=== PATIENT | female | born 1955 | race Caucasian/White ===

== ENCOUNTER 2017-07-02 10:48 | Emergency (ER) | payer MEDICARE, MEDICAID ==
[~2017-07-02] VITALS: Ht 154.9 cm; Wt 59.0 kg
[~2017-07-02 10:48] MED LIST: ACETTAB85 PO; BACL20TA PO; BUSP10TA90 PO; DIPH50CA31 PO; DOCU1CAP31 PO; ERGO2000 PO; GABA-498 PO; HYDR-2651 PO; ISO60SRT PO; LINA145C PO; METO5TAB2 PO; NITR400A5 TL; PRAV20TA3 PO; SPIR25TA89 PO; TRAM50TA2 PO; WARF1TAB PO; ZOLP10TA6 PO
[2017-07-02 13:36] LABS: INR 1.1 (0.9-1.15); Partial Thromboplastin Time 24.4 sec (22.64-33.71)
[2017-07-02 13:51] LABS: Eosinophils # (auto) 0 uL; Hematocrit 34.5 % (36.0-46.0); Lymphocytes # (auto) 1.8 uL; Lymphocytes % (auto) 12.8 % (10.0-50.0); Neutrophils # (auto) 11.2 uL
[2017-07-02 13:53] LABS: Basophils # (auto) 0 uL; Basophils % (auto) 0.3 % (0.0-2.0); Hemoglobin 10.3 g/dL (12.2-16.2); Mean Corpuscular Hemoglobin 24.3 pg (28.0-32.0); Mean Corpuscular Volume 81.1 fL (80.0-100.0); Mean Platelet Volume 8.3 fL (6.9-10.8); Monocytes % (auto) 7.4 % (0.0-12.0); Neutrophils % (auto) 79.5 % (37.0-80.0); Nucleated Red Blood Cells % 0.2 %; Platelet Count (auto) 371 10^3/uL (140-450); White Blood Cell 14.1 10^3/uL (4.4-10.8)
[2017-07-02 14:35] LABS: Anisocytosis Slight; Platelet Estimate Adequate
[2017-07-02 14:36] LABS: Microcytosis Slight
[2017-07-02 14:48] LABS: Albumin 3.7 g/dL (3.4-5.0); BUN/Creatinine Ratio 12.5; Bilirubin, Total 0.6 mg/dL (0.2-1.0); Calcium 9.2 mg/dL (8.5-10.1); Magnesium 2.8 mg/dL (1.6-2.6); Total Protein 8.3 g/dL (6.4-8.2)
[2017-07-02 15:04] LABS: Temperature: 23.5 C (20.0-25.0)
[2017-07-02 15:53] VITALS: BP 95/66
== END 2017-07-02 16:09 | disposition swing bed (61) ==
LOC: EDBD 10:48 → ER 10:48
DX: R41.82 Altered mental status, unspecified (principal); D72.829 Elevated white blood cell count, unspecified; I13.0 Hypertensive heart and chronic kidney disease with heart failure and stage 1 through stage 4 chronic kidney disease, or unspecified chronic kidney disease; I50.9 Heart failure, unspecified; N18.9 Chronic kidney disease, unspecified; E11.22 Type 2 diabetes mellitus with diabetic chronic kidney disease; R22.0 Localized swelling, mass and lump, head; I25.2 Old myocardial infarction; Z95.1 Presence of aortocoronary bypass graft; Z79.01 Long term (current) use of anticoagulants; Z79.899 Other long term (current) drug therapy; Z95.0 Presence of cardiac pacemaker
CPT/HCPCS: 36415; 70450; 71010; 80053; 82962; 83735; 83880; 84484; 85025; 85610; 85730; 93005; 94761

== ENCOUNTER 2021-01-27 02:15 | Inpatient (IN) | payer MEDICARE, MEDICAID ==
[~2021-01-27] VITALS: Ht 154.9 cm; Wt 68.4 kg
[~2021-01-27 02:15] MED LIST changes: +ACET-1603 PO; -ACETTAB85 PO; -GABA-498 PO; +GABA400C11 PO; -HYDR-2651 PO; +HYDR-4296 PO; +SPIR25TA8 PO; -SPIR25TA89 PO
[2021-01-27] MEDS ORDERED: ONDANSETRON HCL 4 MG/2 ML VIAL IV ONE (04:15)
[2021-01-27] MEDS ORDERED: HYDROmorphone HCL 2 MG/ML VL IV ONE (04:15)
[2021-01-27 04:21] LABS: Basophils # (auto) 0.1 10 ^3/uL (0-0.2); Basophils % (auto) 0.7 % (0.0-2.0); Eosinophils # (auto) 0 10 ^3/uL (0-0.8); Eosinophils % (auto) 0.3 % (0.0-7.0); Hematocrit 40.5 % (36.0-46.0); Hemoglobin 13.7 g/dL (12.2-16.2); Lymphocytes # (auto) 1.2 10 ^3/uL (0.4-5.4); Lymphocytes % (auto) 14.3 % (10.0-50.0); Mean Corpuscular Hemoglobin 31.7 pg (28.0-32.0); Mean Corpuscular Hgb Conc. 33.7 g/dL (32.0-36.0); Mean Corpuscular Volume 94.1 fL (80.0-100.0); Monocytes # (auto) 0.6 10 ^3/uL (0-1.3); Monocytes % (auto) 7.1 % (0.0-12.0); Neutrophils # (auto) 6.7 10 ^3/uL (1.6-8.6); Neutrophils % (auto) 77.6 % (37.0-80.0); Nucleated Red Blood Cells % 0.1 %; Platelet Count (auto) 284 10^3/uL (140-450); Red Blood Cells 4.31 10^6/uL (4.0-5.20); Red Cell Distribution Width 14.7 % (11.8-14.3); White Blood Cell 8.6 10^3/uL (4.4-10.8)
[2021-01-27 04:34] LABS: INR 2.63 (0.9-1.15); Partial Thromboplastin Time 56.1 sec (23.0-31.2)
[2021-01-27 04:37] LABS: Alanine Aminotransferase 43 U/L (13-56); Albumin 3.7 g/dL (3.4-5.0); Amylase 91 U/L (25-115); Anion Gap 6 (5-15); Aspartate Aminotransferase 39 U/L (15-37); Blood Urea Nitrogen 25 mg/dL (7-18); Carbon Dioxide 24 mmol/L (21-32); Chloride 109 mmol/L (98-107); Glucose 98 mg/dL (74-106); Lipase 233 U/L (73-393); Magnesium 2.4 mg/dL (1.6-2.6); Potassium 4.3 mmol/L (3.5-5.1); Sodium 139 mmol/L (136-145)
[2021-01-27 04:42] LABS: Alkaline Phosphatase 83 U/L (45-117); BUN/Creatinine Ratio 15.9; Bilirubin, Total 0.8 mg/dL (0.2-1.0); GFR African American 42 mL/min; GFR Non-African American 35 mL/min; Total Protein 8.7 g/dL (6.4-8.2)
[2021-01-27] MEDS ORDERED: DexAMETHasone SOD PHOS 10MG/1ML VIAL INJ IV ONE (06:15)
[2021-01-27] MEDS ORDERED: AZITHROMYCIN 500MG/ 250ML 250 ML IV ONE (06:15)
[2021-01-27] MEDS ORDERED: DOXYCYCLINE 100MG/250ML 250 ML IV ONE (06:15)
[2021-01-27] MEDS ORDERED: ONDANSETRON HCL 4 MG/2 ML VIAL IV PRN (07:00)
[2021-01-27] MEDS: InsuLIN REG 1unit/0.01ml Soln (100units/ml) SC SCH ×2 (07:00→11:30)
[2021-01-27] MEDS ORDERED: HYDROcodone-ACET 5/325MG TAB PO PRN (07:00)
[2021-01-27] MEDS ORDERED: DEXTROSE (50%) 50ML SYRG IV PRN (07:00)
[2021-01-27] MEDS: ACCU-CHEK COMFORT CURVE STRIP VI SCH ×2 (07:00→12:15)
[2021-01-27] MEDS ORDERED: ACETAMINOPHEN 500 MG TAB PO PRN (07:00)
[2021-01-27] MEDS ORDERED: NITROGLYCERIN 0.4 MG SL TAB SL PRN (07:00)
[2021-01-27] MEDS ORDERED: MORPHINE SULF INJ 2 MG/ML SYRINGE 1ML IV PRN (07:00)
[2021-01-27] MEDS ORDERED: PANTOPRAZOLE 40 MG TAB PO SCH (10:00)
[2021-01-27 11:44] LABS: Urine Bacteria NONE SEEN /hpf (None Seen); Urine Blood Negative /uL (Negative); Urine Mucus FEW (None Seen); Urine WBC 4 /hpf (0 - 5)
[2021-01-27] MEDS: HYDROmorphone HCL 2 MG/ML VL IV PRN ×2 (12:24→18:45)
[2021-01-27 13:59] VITALS: BP 132/83
[2021-01-27] MEDS ORDERED: OPTISON 3ml Vial for INJ IV ONE (14:50)
[2021-01-27] MEDS: GABAPENTIN 400 MG CAP PO SCH ×2 (15:40→21:09)
[2021-01-27] MEDS ORDERED: POLY33504 GT (16:22)
[2021-01-27] MEDS ORDERED: LISI-275 PO (16:22)
[2021-01-27] MEDS ORDERED: GLYC1AER IN (16:22)
[2021-01-27] MEDS ORDERED: PRO125RS PO (16:22)
[2021-01-27] MEDS ORDERED: PANT40TA2 PO (16:22)
[2021-01-27] MEDS ORDERED: DIAZ5TAB3 PO (16:22)
[2021-01-27] MEDS ORDERED: FURO20TA3 PO (16:22)
[2021-01-27] MEDS ORDERED: ENOX100I5 SC (16:22)
[2021-01-27] MEDS ORDERED: ATOR40TA52 PO (16:23)
[2021-01-27 16:41] VITALS: BP 134/83
[2021-01-27 16:44] VITALS: BP 120/79
[2021-01-27] MEDS ORDERED: WARFARIN SODIUM 5 MG TAB PO ONE (17:00)
[2021-01-27] MEDS: SUCRALFATE 1 GM/10 ML ORAL SUSP PO SCH ×2 (17:32→21:09)
[2021-01-27] MEDS: PANTOPRAZOLE 40 MG TAB PO SCH (21:10)
[2021-01-27 22:00] VITALS: BP 109/69
[2021-01-28] MEDS ORDERED: TEMAZEPAM 15 MG CAP PO ONE (01:00)
[2021-01-28 05:09] VITALS: BP 115/72
[2021-01-28] MEDS: GABAPENTIN 400 MG CAP PO SCH ×2 (05:27→14:06)
[2021-01-28] MEDS: SUCRALFATE 1 GM/10 ML ORAL SUSP PO SCH ×2 (06:18→11:09)
[2021-01-28 08:09] LABS: INR 3.23 (0.9-1.15)
[2021-01-28 08:31] VITALS: BP 119/79
[2021-01-28] MEDS: PANTOPRAZOLE 40 MG TAB PO SCH (09:13)
[2021-01-28 09:41] LABS: BUN/Creatinine Ratio 17.9; Calcium 8.8 mg/dL (8.5-10.1); Potassium 4.3 mmol/L (3.5-5.1)
[2021-01-28] MEDS ORDERED: AZITHROMYCIN 250 MG TAB PO SCH (10:30)
[2021-01-28] MEDS ORDERED: AZIT250T PO (11:35)
[2021-01-28] MEDS ORDERED: SUCR1TAB22 OR (11:35)
[2021-01-28] MEDS ORDERED: PANT40TA2 PO (11:35)
[2021-01-28 12:31] VITALS: BP 114/75
== END 2021-01-28 15:20 | disposition home or self-care (01) | DRG 177 ==
LOC: EDBD 02:15 → ER 02:19 → TELE 06:58 → TELE-EAST 13:44
PROVIDERS: ADMIT Nurse Practitioner Acute Care; ATTEND Internal Medicine
DX: J15.6 Pneumonia due to other Gram-negative bacteria (principal); N17.0 Acute kidney failure with tubular necrosis; I50.42 Chronic combined systolic (congestive) and diastolic (congestive) heart failure; I13.0 Hypertensive heart and chronic kidney disease with heart failure and stage 1 through stage 4 chronic kidney disease, or unspecified chronic kidney disease; K57.92 Diverticulitis of intestine, part unspecified, without perforation or abscess without bleeding; R10.9 Unspecified abdominal pain; R07.9 Chest pain, unspecified; E04.1 Nontoxic single thyroid nodule; F03.90 Unspecified dementia, unspecified severity, without behavioral disturbance, psychotic disturbance, mood disturbance, and anxiety; I51.3 Intracardiac thrombosis, not elsewhere classified; I25.10 Atherosclerotic heart disease of native coronary artery without angina pectoris; J98.4 Other disorders of lung; R59.0 Localized enlarged lymph nodes; N18.31 Chronic kidney disease, stage 3a; E11.22 Type 2 diabetes mellitus with diabetic chronic kidney disease; E78.5 Hyperlipidemia, unspecified; F41.9 Anxiety disorder, unspecified; K57.30 Diverticulosis of large intestine without perforation or abscess without bleeding; Z20.822 Contact with and (suspected) exposure to COVID-19; Z95.810 Presence of automatic (implantable) cardiac defibrillator; Z79.01 Long term (current) use of anticoagulants; Z79.899 Other long term (current) drug therapy; Z82.49 Family history of ischemic heart disease and other diseases of the circulatory system; Z87.891 Personal history of nicotine dependence; Z95.1 Presence of aortocoronary bypass graft; Z95.5 Presence of coronary angioplasty implant and graft; Z88.5 Allergy status to narcotic agent
CPT/HCPCS: 36415; 71250; 74176; 76536; 80048; 80053; 81001; 82150; 82962; 83036; 83605; 83615; 83690; 83735; 84443; 84484; 85025; 85610; 85730; 87040; 87070; 87077; 87081; 87086; 87186; 87205; 87426; 93005; 93306; 96365; 96367; 96375; G0378; J1100; J2405; J3490; Q9956

== ENCOUNTER → 2021-03-18 | Outpatient (CLI) | payer MEDICARE, MEDICAID ==
[~2021-03-18] MED LIST changes: +ATOR40TA52 PO; +AZIT250T PO; -BACL20TA PO; +DIAZ5TAB3 PO; -DIPH50CA31 PO; +FURO20TA3 PO; +GLYC1AER IN; -HYDR-4296 PO; -ISO60SRT PO; -LINA145C PO; +LISI-275 PO; -METO5TAB2 PO; -NITR400A5 TL; +PANT40TA2 PO; +POLY33504 GT; -PRAV20TA3 PO; +PRO125RS PO; -SPIR25TA8 PO; +SUCR1TAB22 OR
== END | disposition home or self-care (01) ==
LOC: LAB 12:06
PROVIDERS: ATTEND Internal Medicine Pulmonary Disease
DX: Z01.812 Encounter for preprocedural laboratory examination (principal); Z20.822 Contact with and (suspected) exposure to COVID-19
CPT/HCPCS: 36415; 87426

== ENCOUNTER → 2021-03-19 | Outpatient (CLI) | payer MEDICARE, MEDICAID ==
[~2021-03-19] MED LIST changes: +ALBUTEROL SULF 2.5 MG/0.5ML(0.5%) NEB SOLN ONE
== END | disposition home or self-care (01) ==
LOC: RT 03-18 11:09
PROVIDERS: ATTEND Internal Medicine Pulmonary Disease
DX: J44.9 Chronic obstructive pulmonary disease, unspecified (principal)
CPT/HCPCS: 94060; 94727; 94729

== ENCOUNTER 2021-04-18 08:52 | Inpatient (IN) | payer MEDICARE, MEDICAID ==
[~2021-04-18] VITALS: Ht 154.9 cm; Wt 71.0 kg
[~2021-04-18 08:52] MED LIST changes: -ALBUTEROL SULF 2.5 MG/0.5ML(0.5%) NEB SOLN ONE
[2021-04-18] MEDS ORDERED: SODIUM CHLORIDE 0.9% 500 ML IV ONE (10:30)
[2021-04-18] MEDS ORDERED: SODIUM CHLORIDE 0.9% 1,000 ML IV ONE (11:30)
[2021-04-18 12:24] LABS: Basophils # (auto) 0 10 ^3/uL (0-0.2); Basophils % (auto) 0.3 % (0.0-2.0); Eosinophils # (auto) 0.1 10 ^3/uL (0-0.8); Eosinophils % (auto) 0.7 % (0.0-7.0); Lymphocytes % (auto) 7.5 % (10.0-50.0); Monocytes # (auto) 0.7 10 ^3/uL (0-1.3); Monocytes % (auto) 5.2 % (0.0-12.0); Neutrophils # (auto) 11.5 10 ^3/uL (1.6-8.6); Neutrophils % (auto) 86.3 % (37.0-80.0); Red Blood Cells 3.79 10^6/uL (4.0-5.20); White Blood Cell 13.3 10^3/uL (4.4-10.8)
[2021-04-18 12:25] LABS: Hematocrit 34.7 % (36.0-46.0); Hemoglobin 11.6 g/dL (12.2-16.2); Mean Corpuscular Hemoglobin 30.6 pg (28.0-32.0); Mean Corpuscular Hgb Conc. 33.4 g/dL (32.0-36.0); Mean Corpuscular Volume 91.6 fL (80.0-100.0); Red Cell Distribution Width 14.9 % (11.8-14.3)
[2021-04-18 12:43] LABS: Anion Gap 8 (5-15); BUN/Creatinine Ratio 15.9; Blood Urea Nitrogen 28 mg/dL (7-18); Calcium 8.4 mg/dL (8.5-10.1); Carbon Dioxide 20 mmol/L (21-32); Chloride 108 mmol/L (98-107); GFR African American 37 mL/min; GFR Non-African American 31 mL/min; Glucose 133 mg/dL (74-106); Magnesium 2.3 mg/dL (1.6-2.6); Potassium 3.9 mmol/L (3.5-5.1); Sodium 136 mmol/L (136-145)
[2021-04-18 12:58] LABS: Alanine Aminotransferase 37 U/L (13-56); Alkaline Phosphatase 84 U/L (45-117); Aspartate Aminotransferase 37 U/L (15-37); Bilirubin, Total 0.6 mg/dL (0.2-1.0); Total Protein 7.2 g/dL (6.4-8.2)
[2021-04-18] MEDS: PHENYLEPHRINE IV 250 ML IV SCH (16:06)
[2021-04-18] MEDS ORDERED: DOCUSATE CALCIUM 240 MG CAP PO PRN (17:30)
[2021-04-18] MEDS ORDERED: NITROGLYCERIN 0.4 MG SL TAB SL PRN (17:30)
[2021-04-18] MEDS ORDERED: ACETAMINOPHEN 500 MG TAB PO PRN (17:30)
[2021-04-18] MEDS ORDERED: DEXTROSE (50%) 50ML SYRG IV PRN (17:30)
[2021-04-18] MEDS ORDERED: LORazepam 0.5 MG TAB PO PRN (17:30)
[2021-04-18] MEDS ORDERED: ONDANSETRON HCL 4 MG/2 ML VIAL IV PRN (17:30)
[2021-04-18] MEDS: HYDROmorphone HCL 2 MG/ML VL IV PRN ×2 (18:37→22:36)
[2021-04-18 19:15] LABS: Basophils # (auto) 0.1 10 ^3/uL (0-0.2); Basophils % (auto) 0.7 % (0.0-2.0); Eosinophils # (auto) 0.1 10 ^3/uL (0-0.8); Eosinophils % (auto) 0.6 % (0.0-7.0); Hemoglobin 10.8 g/dL (12.2-16.2); Lymphocytes # (auto) 1.7 10 ^3/uL (0.4-5.4); Lymphocytes % (auto) 14.3 % (10.0-50.0); Mean Corpuscular Hemoglobin 30.9 pg (28.0-32.0); Mean Corpuscular Hgb Conc. 33.8 g/dL (32.0-36.0); Mean Corpuscular Volume 91.6 fL (80.0-100.0); Monocytes # (auto) 1.2 10 ^3/uL (0-1.3); Neutrophils # (auto) 8.6 10 ^3/uL (1.6-8.6); Neutrophils % (auto) 74.4 % (37.0-80.0); Red Cell Distribution Width 14.9 % (11.8-14.3); White Blood Cell 11.6 10^3/uL (4.4-10.8)
[2021-04-18 19:26] LABS: Calcium 7.8 mg/dL (8.5-10.1); Potassium 3.9 mmol/L (3.5-5.1)
[2021-04-18 19:29] LABS: Albumin 2.8 g/dL (3.4-5.0); BUN/Creatinine Ratio 18.4
[2021-04-18 19:32] LABS: Bilirubin, Total 0.4 mg/dL (0.2-1.0); Total Protein 6.7 g/dL (6.4-8.2)
[2021-04-18 19:40] LABS: INR 3.49 (0.9-1.15)
[2021-04-18] MEDS: InsuLIN REG 1unit/0.01ml Soln (100units/ml) SC SCH (20:00)
[2021-04-18] MEDS: ACCU-CHEK COMFORT CURVE STRIP VI SCH (20:00)
[2021-04-18 20:28] VITALS: BP 98/67
[2021-04-18] MEDS: ALBUTEROL SULF 2.5 MG/0.5ML(0.5%) NEB SOLN NEB PRN (21:24)
[2021-04-18] MEDS: BUDESONIDE (INHALATION) 0.5 MG/2 ML NEB NEB SCH (21:24)
[2021-04-19] VITALS (52 sets, daily range): BP systolic 90–129; BP diastolic 53–78
[2021-04-19] MEDS: PHENYLEPHRINE IV 250 ML IV SCH ×3 (00:04→10:51)
[2021-04-19] MEDS: InsuLIN REG 1unit/0.01ml Soln (100units/ml) SC SCH ×3 (04:00→08:00)
[2021-04-19] MEDS: ACCU-CHEK COMFORT CURVE STRIP VI SCH ×3 (04:00→08:11)
[2021-04-19 04:13] LABS: Basophils # (auto) 0.1 10 ^3/uL (0-0.2); Basophils % (auto) 0.9 % (0.0-2.0); Eosinophils # (auto) 0.1 10 ^3/uL (0-0.8); Eosinophils % (auto) 1.2 % (0.0-7.0); Hematocrit 30.2 % (36.0-46.0); Hemoglobin 10.1 g/dL (12.2-16.2); Lymphocytes # (auto) 1.5 10 ^3/uL (0.4-5.4); Lymphocytes % (auto) 18.8 % (10.0-50.0); Mean Corpuscular Hemoglobin 30.9 pg (28.0-32.0); Mean Corpuscular Hgb Conc. 33.4 g/dL (32.0-36.0); Mean Corpuscular Volume 92.4 fL (80.0-100.0); Monocytes # (auto) 0.8 10 ^3/uL (0-1.3); Neutrophils # (auto) 5.4 10 ^3/uL (1.6-8.6); Neutrophils % (auto) 69.1 % (37.0-80.0); Nucleated Red Blood Cells % 0.1 %; Red Blood Cells 3.27 10^6/uL (4.0-5.20); Red Cell Distribution Width 14.8 % (11.8-14.3); White Blood Cell 7.8 10^3/uL (4.4-10.8)
[2021-04-19 04:44] LABS: INR 4.09 (0.9-1.15)
[2021-04-19 04:52] LABS: Albumin 2.7 g/dL (3.4-5.0); BUN/Creatinine Ratio 19.5; Calcium 7.8 mg/dL (8.5-10.1); Potassium 4.2 mmol/L (3.5-5.1)
[2021-04-19 04:54] LABS: Bilirubin, Total 0.3 mg/dL (0.2-1.0); Total Protein 6.1 g/dL (6.4-8.2)
[2021-04-19] MEDS: cefTRIAXone 1GM/50ML D5W 50 ML IV SCH (08:59)
[2021-04-19] MEDS: HYDROmorphone HCL 2 MG/ML VL IV PRN (09:38)
[2021-04-19] MEDS ORDERED: PANTOPRAZOLE 40 MG TAB PO SCH (10:00)
[2021-04-19] MEDS ORDERED: traMADol HCL 50 MG TAB PO PRN (10:15)
[2021-04-19] MEDS ORDERED: PROMETHAZINE HCL 12.5 MG RECT SUPP PR PRN (10:15)
[2021-04-19] MEDS: SUCRALFATE 1 GM TAB PO SCH ×3 (11:30→21:58)
[2021-04-19] MEDS: Ensure HIGH Protein Chocolate 8oz Bottle PO SCH ×2 (11:49→17:57)
[2021-04-19] MEDS ORDERED: diazePAM 5 MG TAB PO PRN (12:00)
[2021-04-19 13:13] LABS: Urine WBC None Seen /hpf (0 - 5)
[2021-04-19 13:18] LABS: Urine Bacteria NONE SEEN /hpf (None Seen); Urine Blood Negative /uL (Negative); Urine Specific Gravity 1.012 (1.001-1.035)
[2021-04-19] MEDS: GABAPENTIN 400 MG CAP PO SCH ×2 (13:57→21:58)
[2021-04-19] MEDS ORDERED: busPIRone HCL 10 MG TAB PO SCH ×2 (14:00→16:00)
[2021-04-19] MEDS ORDERED: WARFARIN SODIUM 5 MG TAB PO SCH (17:00)
[2021-04-19] MEDS ORDERED: OPTISON 3ml Vial for INJ IV ONE ×2 (17:43→18:00)
[2021-04-19] MEDS: POLYETHYLENE GLYCOL 17 GM PWDR PO SCH (20:12)
[2021-04-19] MEDS: busPIRone HCL 10 MG TAB PO SCH (21:58)
[2021-04-19] MEDS: ZOLPIDEM TARTRATE 5 MG TAB PO SCH (21:58)
[2021-04-19] MEDS: ATORVASTATIN 20 MG TAB PO SCH (21:58)
[2021-04-19] MEDS: ACETAMINOPHEN/CODEINE#3 (300/30mg) TAB PO SCH (21:59)
[2021-04-19] MEDS: PANTOPRAZOLE 40 MG TAB PO SCH (21:59)
[2021-04-19] MEDS: BUDESONIDE (INHALATION) 0.5 MG/2 ML NEB NEB SCH ×2 (22:00→22:06)
[2021-04-19] MEDS ORDERED: DOCUSATE SOD 100 MG CAP PO SCH (22:00)
[2021-04-20 05:00] VITALS: BP 134/70
[2021-04-20] MEDS: busPIRone HCL 10 MG TAB PO SCH ×3 (06:22→20:30)
[2021-04-20] MEDS: GABAPENTIN 400 MG CAP PO SCH ×3 (06:22→20:30)
[2021-04-20] MEDS: SUCRALFATE 1 GM TAB PO SCH ×4 (06:23→20:30)
[2021-04-20] MEDS: BUDESONIDE (INHALATION) 0.5 MG/2 ML NEB NEB SCH ×2 (07:35→23:08)
[2021-04-20] MEDS: IPRATROPIUM BROM 0.5 MG/2.5ML INH SOL NEB PRN (07:35)
[2021-04-20] MEDS: ALBUTEROL SULF 2.5 MG/0.5ML(0.5%) NEB SOLN NEB PRN (07:35)
[2021-04-20] MEDS: Ensure HIGH Protein Chocolate 8oz Bottle PO SCH ×3 (08:00→17:56)
[2021-04-20 08:36] LABS: Basophils # (auto) 0.1 10 ^3/uL (0-0.2); Basophils % (auto) 0.6 % (0.0-2.0); Eosinophils # (auto) 0.1 10 ^3/uL (0-0.8); Eosinophils % (auto) 0.8 % (0.0-7.0); Hematocrit 33.2 % (36.0-46.0); Hemoglobin 11.2 g/dL (12.2-16.2); Lymphocytes % (auto) 10.3 % (10.0-50.0); Mean Corpuscular Hemoglobin 31.3 pg (28.0-32.0); Mean Corpuscular Hgb Conc. 33.7 g/dL (32.0-36.0); Mean Corpuscular Volume 92.8 fL (80.0-100.0); Monocytes # (auto) 0.6 10 ^3/uL (0-1.3); Monocytes % (auto) 5.9 % (0.0-12.0); Neutrophils # (auto) 7.9 10 ^3/uL (1.6-8.6); Neutrophils % (auto) 82.4 % (37.0-80.0); Red Blood Cells 3.58 10^6/uL (4.0-5.20); Red Cell Distribution Width 15.4 % (11.8-14.3); White Blood Cell 9.6 10^3/uL (4.4-10.8)
[2021-04-20 08:54] LABS: INR 2.82 (0.9-1.15); Partial Thromboplastin Time 37.6 sec (23.0-31.2)
[2021-04-20 09:00] VITALS: BP 115/68
[2021-04-20 09:04] LABS: Albumin 2.8 g/dL (3.4-5.0); Anion Gap 4 (5-15); Blood Urea Nitrogen 22 mg/dL (7-18); Calcium 8.7 mg/dL (8.5-10.1); Carbon Dioxide 26 mmol/L (21-32); Chloride 112 mmol/L (98-107); Glucose 142 mg/dL (74-106); Potassium 4.1 mmol/L (3.5-5.1); Sodium 142 mmol/L (136-145)
[2021-04-20 09:11] LABS: Alanine Aminotransferase 37 U/L (13-56); Alkaline Phosphatase 81 U/L (45-117); Aspartate Aminotransferase 28 U/L (15-37); BUN/Creatinine Ratio 15.4; Bilirubin, Total 0.8 mg/dL (0.2-1.0); GFR African American 47 mL/min; GFR Non-African American 39 mL/min; Total Protein 7.2 g/dL (6.4-8.2)
[2021-04-20] MEDS: cefTRIAXone 1GM/50ML D5W 50 ML IV SCH (09:42)
[2021-04-20] MEDS: PANTOPRAZOLE 40 MG TAB PO SCH ×2 (09:42→20:45)
[2021-04-20] MEDS: ACETAMINOPHEN/CODEINE#3 (300/30mg) TAB PO SCH ×3 (09:42→20:31)
[2021-04-20] MEDS: POLYETHYLENE GLYCOL 17 GM PWDR PO SCH ×2 (09:42→20:45)
[2021-04-20] MEDS: HYDROmorphone HCL 2 MG/ML VL IV PRN ×2 (09:55→17:57)
[2021-04-20] MEDS ORDERED: FUROSEMIDE 20 MG TAB PO SCH (10:00)
[2021-04-20 13:00] VITALS: BP 107/69
[2021-04-20 17:00] VITALS: BP 128/72
[2021-04-20] MEDS ORDERED: WARFARIN SODIUM 2 MG TAB PO ONE (17:00)
[2021-04-20] MEDS: ATORVASTATIN 20 MG TAB PO SCH (20:30)
[2021-04-20] MEDS: ZOLPIDEM TARTRATE 5 MG TAB PO SCH (20:30)
[2021-04-20 23:02] VITALS: BP 134/83
[2021-04-21] MEDS: busPIRone HCL 10 MG TAB PO SCH ×3 (05:26→21:21)
[2021-04-21] MEDS: GABAPENTIN 400 MG CAP PO SCH ×3 (05:26→21:22)
[2021-04-21] MEDS: SUCRALFATE 1 GM TAB PO SCH ×4 (05:27→21:22)
[2021-04-21 05:51] LABS: Basophils # (auto) 0.1 10 ^3/uL (0-0.2); Basophils % (auto) 0.9 % (0.0-2.0); Eosinophils # (auto) 0.1 10 ^3/uL (0-0.8); Hematocrit 30.6 % (36.0-46.0); Hemoglobin 10.6 g/dL (12.2-16.2); Lymphocytes # (auto) 1.3 10 ^3/uL (0.4-5.4); Lymphocytes % (auto) 18.1 % (10.0-50.0); Mean Corpuscular Hemoglobin 31.7 pg (28.0-32.0); Mean Corpuscular Hgb Conc. 34.6 g/dL (32.0-36.0); Mean Corpuscular Volume 91.5 fL (80.0-100.0); Monocytes # (auto) 0.8 10 ^3/uL (0-1.3); Monocytes % (auto) 11.1 % (0.0-12.0); Neutrophils # (auto) 4.9 10 ^3/uL (1.6-8.6); Neutrophils % (auto) 67.9 % (37.0-80.0); Red Blood Cells 3.34 10^6/uL (4.0-5.20); White Blood Cell 7.3 10^3/uL (4.4-10.8)
[2021-04-21 05:59] VITALS: BP 125/67
[2021-04-21] MEDS ORDERED: SODIUM CHL 3% 500 ML BAG IN ONE ×2 (06:00→07:00)
[2021-04-21 06:21] LABS: INR 2.19 (0.9-1.15); Partial Thromboplastin Time 37.3 sec (23.0-31.2)
[2021-04-21 06:35] LABS: Potassium 4.4 mmol/L (3.5-5.1)
[2021-04-21 07:04] LABS: Albumin 2.5 g/dL (3.4-5.0); BUN/Creatinine Ratio 15.3; Bilirubin, Total 0.6 mg/dL (0.2-1.0); Calcium 8.2 mg/dL (8.5-10.1); Total Protein 6.8 g/dL (6.4-8.2)
[2021-04-21] MEDS: Ensure HIGH Protein Chocolate 8oz Bottle PO SCH ×3 (07:27→16:41)
[2021-04-21] MEDS: BUDESONIDE (INHALATION) 0.5 MG/2 ML NEB NEB SCH ×2 (08:35→22:56)
[2021-04-21] MEDS: ALBUTEROL SULF 2.5 MG/0.5ML(0.5%) NEB SOLN NEB PRN ×2 (08:35→22:57)
[2021-04-21] MEDS: IPRATROPIUM BROM 0.5 MG/2.5ML INH SOL NEB PRN ×2 (08:36→22:56)
[2021-04-21 09:00] VITALS: BP 118/74
[2021-04-21] MEDS: PANTOPRAZOLE 40 MG TAB PO SCH ×2 (09:08→21:22)
[2021-04-21] MEDS: cefTRIAXone 1GM/50ML D5W 50 ML IV SCH (09:08)
[2021-04-21] MEDS: POLYETHYLENE GLYCOL 17 GM PWDR PO SCH ×2 (09:14→21:22)
[2021-04-21] MEDS: ACETAMINOPHEN/CODEINE#3 (300/30mg) TAB PO SCH ×2 (09:14→21:23)
[2021-04-21 13:00] VITALS: BP 123/74
[2021-04-21 17:00] VITALS: BP 110/67
[2021-04-21] MEDS ORDERED: WARFARIN SODIUM 1 MG TAB PO ONE (17:00)
[2021-04-21] MEDS: HYDROmorphone HCL 2 MG/ML VL IV PRN (17:18)
[2021-04-21] MEDS: ZOLPIDEM TARTRATE 5 MG TAB PO SCH (21:21)
[2021-04-21] MEDS: ATORVASTATIN 20 MG TAB PO SCH (21:22)
[2021-04-21 23:09] VITALS: BP 113/70
[2021-04-22 03:35] VITALS: BP 113/70
[2021-04-22 05:34] VITALS: BP 138/81
[2021-04-22] MEDS: SUCRALFATE 1 GM TAB PO SCH ×4 (05:48→20:49)
[2021-04-22] MEDS: busPIRone HCL 10 MG TAB PO SCH ×3 (05:48→20:49)
[2021-04-22] MEDS: GABAPENTIN 400 MG CAP PO SCH ×3 (05:48→20:49)
[2021-04-22] MEDS ORDERED: SODIUM CHL 3% 500 ML BAG IN ONE (06:00)
[2021-04-22 06:26] LABS: Basophils # (auto) 0.1 10 ^3/uL (0-0.2); Basophils % (auto) 0.7 % (0.0-2.0); Eosinophils # (auto) 0.2 10 ^3/uL (0-0.8); Eosinophils % (auto) 2.2 % (0.0-7.0); Hematocrit 30.5 % (36.0-46.0); Hemoglobin 10.4 g/dL (12.2-16.2); Lymphocytes # (auto) 1.1 10 ^3/uL (0.4-5.4); Lymphocytes % (auto) 13.5 % (10.0-50.0); Mean Corpuscular Hemoglobin 31.4 pg (28.0-32.0); Mean Corpuscular Hgb Conc. 34.3 g/dL (32.0-36.0); Mean Corpuscular Volume 91.6 fL (80.0-100.0); Monocytes # (auto) 0.6 10 ^3/uL (0-1.3); Monocytes % (auto) 7.9 % (0.0-12.0); Neutrophils % (auto) 75.7 % (37.0-80.0); Red Blood Cells 3.33 10^6/uL (4.0-5.20); Red Cell Distribution Width 15.2 % (11.8-14.3); White Blood Cell 7.9 10^3/uL (4.4-10.8)
[2021-04-22 06:36] LABS: INR 1.94 (0.9-1.15)
[2021-04-22 06:49] LABS: Albumin 2.4 g/dL (3.4-5.0)
[2021-04-22] MEDS: BUDESONIDE (INHALATION) 0.5 MG/2 ML NEB NEB SCH ×2 (07:15→22:22)
[2021-04-22 08:30] VITALS: BP 124/81
[2021-04-22] MEDS: cefTRIAXone 1GM/50ML D5W 50 ML IV SCH (09:44)
[2021-04-22] MEDS: POLYETHYLENE GLYCOL 17 GM PWDR PO SCH ×2 (09:44→20:50)
[2021-04-22] MEDS: Ensure HIGH Protein Chocolate 8oz Bottle PO SCH ×3 (09:44→16:57)
[2021-04-22] MEDS: ACETAMINOPHEN/CODEINE#3 (300/30mg) TAB PO SCH ×2 (09:45→20:50)
[2021-04-22] MEDS: PANTOPRAZOLE 40 MG TAB PO SCH ×2 (09:45→20:50)
[2021-04-22] MEDS: HYDROmorphone HCL 2 MG/ML VL IV PRN (11:43)
[2021-04-22 12:30] VITALS: BP 129/81
[2021-04-22 17:00] VITALS: BP 129/79
[2021-04-22] MEDS ORDERED: WARFARIN SODIUM 2 MG TAB PO SCH (17:00)
[2021-04-22] MEDS: ATORVASTATIN 20 MG TAB PO SCH (20:49)
[2021-04-22] MEDS: ZOLPIDEM TARTRATE 5 MG TAB PO SCH (20:51)
[2021-04-22 22:00] VITALS: BP 131/74
[2021-04-22] MEDS: ALBUTEROL SULF 2.5 MG/0.5ML(0.5%) NEB SOLN NEB PRN (22:22)
[2021-04-22] MEDS: IPRATROPIUM BROM 0.5 MG/2.5ML INH SOL NEB PRN (22:22)
[2021-04-23 05:00] VITALS: BP 125/77
[2021-04-23] MEDS: HYDROmorphone HCL 2 MG/ML VL IV PRN (05:52)
[2021-04-23] MEDS: GABAPENTIN 400 MG CAP PO SCH ×2 (05:52→14:00)
[2021-04-23] MEDS: busPIRone HCL 10 MG TAB PO SCH ×2 (05:53→14:00)
[2021-04-23] MEDS: SUCRALFATE 1 GM TAB PO SCH ×2 (05:53→11:12)
[2021-04-23] MEDS ORDERED: SODIUM CHL 3% 500 ML BAG IN ONE (06:00)
[2021-04-23 06:19] LABS: INR 1.99 (0.9-1.15)
[2021-04-23] MEDS: IPRATROPIUM BROM 0.5 MG/2.5ML INH SOL NEB PRN (06:40)
[2021-04-23] MEDS: ALBUTEROL SULF 2.5 MG/0.5ML(0.5%) NEB SOLN NEB PRN (06:40)
[2021-04-23] MEDS: BUDESONIDE (INHALATION) 0.5 MG/2 ML NEB NEB SCH (06:40)
[2021-04-23 09:00] VITALS: BP 111/63
[2021-04-23] MEDS: cefTRIAXone 1GM/50ML D5W 50 ML IV SCH (09:34)
[2021-04-23] MEDS: ACETAMINOPHEN/CODEINE#3 (300/30mg) TAB PO SCH (09:35)
[2021-04-23] MEDS: PANTOPRAZOLE 40 MG TAB PO SCH (09:35)
[2021-04-23] MEDS: POLYETHYLENE GLYCOL 17 GM PWDR PO SCH (09:35)
[2021-04-23] MEDS: Ensure HIGH Protein Chocolate 8oz Bottle PO SCH ×2 (09:35→12:00)
[2021-04-23 13:00] VITALS: BP 150/107
[2021-04-23 13:36] VITALS: BP 142/78
[2021-04-23] MEDS ORDERED: WARFARIN SODIUM 2.5 MG TAB PO ONE (17:00)
[2021-04-24] MEDS ORDERED: ERGOCALCIFEROL 50,000 UNIT(1.25MG) CAP PO SCH (10:00)
[2021-04-24] MEDS ORDERED: PANTOPRAZOLE 40 MG TAB PO SCH (10:00)
== END 2021-04-23 14:30 | disposition home or self-care (01) | DRG 682 ==
LOC: EDBD 08:52 → ER 08:52 → EDUNIT# 08:52 → OVERFLOW 17:39 → ICU WEST 23:48 → TELE-WESTW 04-19 23:00
PROVIDERS: ADMIT Family Medicine; ATTEND Internal Medicine Pulmonary Disease
PROC: B54MZZA Ultrasonography of Right Upper Extremity Veins, Guidance (ICD-10-PCS; principal; 2021-04-19)
PROC: 05HB33Z Insertion of Infusion Device into Right Basilic Vein, Percutaneous Approach (ICD-10-PCS; 2021-04-19)
DX: N17.0 Acute kidney failure with tubular necrosis (principal); I50.43 Acute on chronic combined systolic (congestive) and diastolic (congestive) heart failure; I13.0 Hypertensive heart and chronic kidney disease with heart failure and stage 1 through stage 4 chronic kidney disease, or unspecified chronic kidney disease; D68.8 Other specified coagulation defects; E44.0 Moderate protein-calorie malnutrition; E86.0 Dehydration; Z20.822 Contact with and (suspected) exposure to COVID-19; D63.8 Anemia in other chronic diseases classified elsewhere; I51.3 Intracardiac thrombosis, not elsewhere classified; D72.829 Elevated white blood cell count, unspecified; N18.30 Chronic kidney disease, stage 3 unspecified; G89.29 Other chronic pain; E78.5 Hyperlipidemia, unspecified; R73.9 Hyperglycemia, unspecified; I25.10 Atherosclerotic heart disease of native coronary artery without angina pectoris; T45.515A Adverse effect of anticoagulants, initial encounter; R07.89 Other chest pain; J44.9 Chronic obstructive pulmonary disease, unspecified; Z79.899 Other long term (current) drug therapy; Z88.5 Allergy status to narcotic agent; I25.2 Old myocardial infarction; Z95.0 Presence of cardiac pacemaker; Z79.01 Long term (current) use of anticoagulants; Z95.1 Presence of aortocoronary bypass graft; Z82.49 Family history of ischemic heart disease and other diseases of the circulatory system; Z87.891 Personal history of nicotine dependence; Z81.8 Family history of other mental and behavioral disorders; Y92.89 Other specified places as the place of occurrence of the external cause
CPT/HCPCS: 36415; 71250; 80053; 81001; 82040; 82565; 82962; 83036; 83605; 83735; 83880; 84443; 84484; 85025; 85379; 85610; 85730; 87040; 87081; 87086; 87426; 93005; 93306; 93925; 94640; 96374; 96375; G0378; J0696; Q9956

== ENCOUNTER 2021-04-18 08:52 | Emergency (ER) | payer MEDICARE, MEDICAID ==
[~2021-04-18] VITALS: Ht 154.9 cm; Wt 69.4 kg
[2021-04-18 09:08] VITALS: BP 76/51
== END 2021-04-18 09:13 | disposition left against medical advice (07) ==
LOC: ER 08:52
DX: R42 Dizziness and giddiness (principal); R55 Syncope and collapse; Z53.21 Procedure and treatment not carried out due to patient leaving prior to being seen by health care provider
CPT/HCPCS: 36415; 71045; 85025

== ENCOUNTER 2021-06-25 14:59 | Inpatient (IN) | payer MEDICARE, MEDICAID ==
[~2021-06-25] VITALS: Ht 167.6 cm; Wt 71.9 kg
[~2021-06-25 14:59] MED LIST changes: +DOCU1CAP22 PO; -DOCU1CAP31 PO; -LISI-275 PO
[2021-06-25 15:46] LABS: Basophils # (auto) 0.1 10 ^3/uL (0-0.2); Basophils % (auto) 0.7 % (0.0-2.0); Eosinophils # (auto) 0 10 ^3/uL (0-0.8); Eosinophils % (auto) 0.4 % (0.0-7.0); Hematocrit 33.9 % (36.0-46.0); Hemoglobin 11.2 g/dL (12.2-16.2); Lymphocytes # (auto) 0.6 10 ^3/uL (0.4-5.4); Lymphocytes % (auto) 5.9 % (10.0-50.0); Mean Corpuscular Hemoglobin 29.1 pg (28.0-32.0); Mean Corpuscular Volume 88.1 fL (80.0-100.0); Monocytes # (auto) 0.6 10 ^3/uL (0-1.3); Monocytes % (auto) 5.6 % (0.0-12.0); Neutrophils # (auto) 9.5 10 ^3/uL (1.6-8.6); Neutrophils % (auto) 87.4 % (37.0-80.0); Red Blood Cells 3.84 10^6/uL (4.0-5.20); Red Cell Distribution Width 15.9 % (11.8-14.3); White Blood Cell 10.9 10^3/uL (4.4-10.8)
[2021-06-25 16:07] LABS: Albumin 2.8 g/dL (3.4-5.0); Potassium 3.2 mmol/L (3.5-5.1)
[2021-06-25 16:10] LABS: BUN/Creatinine Ratio 12.5; Bilirubin, Total 1.5 mg/dL (0.2-1.0); Total Protein 7.5 g/dL (6.4-8.2)
[2021-06-25] MEDS ORDERED: ALUM & MAG HYDROX-SIMETH LIQ(MAALOX) 30 ML PO ONE (20:30)
[2021-06-25] MEDS ORDERED: POTASSIUM CHL 20 Meq TABLET PO ONE (20:30)
[2021-06-25] MEDS ORDERED: KETOROLAC TROMETH 60MG/2ML VIAL IM ONE (22:00)
[2021-06-25] MEDS ORDERED: FUROSEMIDE 40 MG/4 ML VIAL IV ONE (23:30)
[2021-06-25] MEDS ORDERED: ASPirin 325 MG TAB PO ONE (23:30)
[2021-06-26] MEDS ORDERED: NITROGLYCERIN 0.4 MG SL TAB SL PRN (00:45)
[2021-06-26] MEDS ORDERED: ONDANSETRON HCL 4 MG/2 ML VIAL IV PRN (00:45)
[2021-06-26] MEDS ORDERED: ACETAMINOPHEN 325 MG TAB PO PRN (00:45)
[2021-06-26] MEDS ORDERED: MORPHINE SULFATE INJECTION 2 MG/ML SYRG IV PRN ×2 (00:45→10:15)
[2021-06-26 01:45] LABS: INR 1.3 (0.9-1.15); Partial Thromboplastin Time 27.7 sec (23.6-33.0)
[2021-06-26] MEDS: HYDROcodone-ACET 5/325MG TAB PO PRN ×3 (04:45→18:04)
[2021-06-26] MEDS: FUROSEMIDE 20 MG/2 ML VIAL IV SCH ×2 (06:59→18:10)
[2021-06-26 08:32] LABS: Basophils # (auto) 0.1 10 ^3/uL (0-0.2); Basophils % (auto) 0.8 % (0.0-2.0); Eosinophils # (auto) 0.1 10 ^3/uL (0-0.8); Eosinophils % (auto) 0.5 % (0.0-7.0); Hematocrit 33.1 % (36.0-46.0); Lymphocytes % (auto) 9.1 % (10.0-50.0); Mean Corpuscular Hemoglobin 29.6 pg (28.0-32.0); Mean Corpuscular Hgb Conc. 33.1 g/dL (32.0-36.0); Mean Corpuscular Volume 89.4 fL (80.0-100.0); Monocytes # (auto) 0.6 10 ^3/uL (0-1.3); Monocytes % (auto) 5.4 % (0.0-12.0); Neutrophils # (auto) 9.2 10 ^3/uL (1.6-8.6); Neutrophils % (auto) 84.2 % (37.0-80.0); Nucleated Red Blood Cells % 0.1 %; Red Cell Distribution Width 15.5 % (11.8-14.3); White Blood Cell 10.9 10^3/uL (4.4-10.8)
[2021-06-26 08:37] LABS: Albumin 3.1 g/dL (3.4-5.0)
[2021-06-26 09:00] VITALS: BP 148/96
[2021-06-26] MEDS: CARVEDILOL 12.5 MG TAB PO SCH ×2 (10:13→22:00)
[2021-06-26] MEDS: PANTOPRAZOLE 40 MG TAB PO SCH (10:13)
[2021-06-26] MEDS: GABAPENTIN 400 MG CAP PO SCH ×2 (10:13→22:08)
[2021-06-26] MEDS: ISOSORBIDE MONONITRATE ER 60 MG TAB PO SCH (10:15)
[2021-06-26 13:00] VITALS: BP 107/70
[2021-06-26] MEDS ORDERED: ISO60SRT PO (16:53)
[2021-06-26] MEDS ORDERED: SPIR25TA8 PO (16:53)
[2021-06-26 16:58] VITALS: BP 90/61
[2021-06-26] MEDS ORDERED: WARFARIN SODIUM 5 MG TAB PO ONE (17:00)
[2021-06-26] MEDS ORDERED: ZOLPIDEM TARTRATE 5 MG TAB PO PRN (17:15)
[2021-06-26 22:00] VITALS: BP 96/49
[2021-06-26] MEDS: SACUBITRIL-VALSARTAN 24mg/26mg TAB PO SCH (22:09)
[2021-06-26] MEDS: ATORVASTATIN 20 MG TAB PO SCH (22:09)
[2021-06-27 05:00] VITALS: BP 99/49
[2021-06-27] MEDS: FUROSEMIDE 20 MG/2 ML VIAL IV SCH ×2 (06:00→17:30)
[2021-06-27] MEDS: HYDROcodone-ACET 5/325MG TAB PO PRN ×2 (06:19→16:11)
[2021-06-27 06:58] LABS: Basophils # (auto) 0 10 ^3/uL (0-0.2); Basophils % (auto) 0.6 % (0.0-2.0); Eosinophils # (auto) 0.2 10 ^3/uL (0-0.8); Eosinophils % (auto) 2.9 % (0.0-7.0); Hematocrit 29.4 % (36.0-46.0); Hemoglobin 9.9 g/dL (12.2-16.2); Lymphocytes # (auto) 0.9 10 ^3/uL (0.4-5.4); Lymphocytes % (auto) 13.4 % (10.0-50.0); Mean Corpuscular Hemoglobin 29.6 pg (28.0-32.0); Mean Corpuscular Hgb Conc. 33.8 g/dL (32.0-36.0); Mean Corpuscular Volume 87.4 fL (80.0-100.0); Monocytes # (auto) 0.5 10 ^3/uL (0-1.3); Monocytes % (auto) 7.3 % (0.0-12.0); Neutrophils # (auto) 5.2 10 ^3/uL (1.6-8.6); Neutrophils % (auto) 75.8 % (37.0-80.0); Red Blood Cells 3.36 10^6/uL (4.0-5.20); Red Cell Distribution Width 15.5 % (11.8-14.3); White Blood Cell 6.9 10^3/uL (4.4-10.8)
[2021-06-27 07:03] LABS: INR 1.26 (0.9-1.15)
[2021-06-27 07:26] LABS: Potassium 3.5 mmol/L (3.5-5.1)
[2021-06-27 07:29] LABS: Albumin 2.3 g/dL (3.4-5.0)
[2021-06-27 08:00] VITALS: BP 91/61
[2021-06-27 08:16] LABS: Total Protein 6.7 g/dL (6.4-8.2)
[2021-06-27 09:00] VITALS: BP 91/61
[2021-06-27] MEDS: SACUBITRIL-VALSARTAN 24mg/26mg TAB PO SCH ×2 (09:50→22:04)
[2021-06-27] MEDS: CARVEDILOL 12.5 MG TAB PO SCH ×2 (09:50→22:00)
[2021-06-27] MEDS: GABAPENTIN 400 MG CAP PO SCH ×2 (09:51→22:03)
[2021-06-27] MEDS: PANTOPRAZOLE 40 MG TAB PO SCH (09:51)
[2021-06-27] MEDS: ISOSORBIDE MONONITRATE ER 60 MG TAB PO SCH (09:51)
[2021-06-27 13:00] VITALS: BP 90/55
[2021-06-27 17:00] VITALS: BP 85/56
[2021-06-27] MEDS ORDERED: WARFARIN SODIUM 2 MG TAB PO ONE (17:00)
[2021-06-27] MEDS: ATORVASTATIN 20 MG TAB PO SCH (22:03)
[2021-06-27 23:01] VITALS: BP 94/63
[2021-06-28] MEDS: HYDROcodone-ACET 5/325MG TAB PO PRN (00:26)
[2021-06-28 05:12] VITALS: BP 91/55
[2021-06-28] MEDS: FUROSEMIDE 20 MG/2 ML VIAL IV SCH (05:34)
[2021-06-28 07:01] LABS: INR 1.56 (0.9-1.15); Partial Thromboplastin Time 30.4 sec (23.6-33.0)
[2021-06-28 08:17] VITALS: BP 93/65
[2021-06-28] MEDS: GABAPENTIN 400 MG CAP PO SCH (08:57)
[2021-06-28] MEDS: PANTOPRAZOLE 40 MG TAB PO SCH (08:58)
[2021-06-28] MEDS: ISOSORBIDE MONONITRATE ER 60 MG TAB PO SCH (08:58)
[2021-06-28] MEDS: SACUBITRIL-VALSARTAN 24mg/26mg TAB PO SCH (08:58)
[2021-06-28] MEDS: CARVEDILOL 12.5 MG TAB PO SCH (08:59)
[2021-06-28 09:00] VITALS: BP 93/65
== END 2021-06-28 13:10 | disposition home or self-care (01) | DRG 291 ==
LOC: EDBD 14:59 → ER 14:59 → TELE 06-26 00:43 → TELE-WESTW 06-26 08:11
PROVIDERS: ADMIT Nurse Practitioner; ATTEND Family Medicine
DX: I13.0 Hypertensive heart and chronic kidney disease with heart failure and stage 1 through stage 4 chronic kidney disease, or unspecified chronic kidney disease (principal); E43 Unspecified severe protein-calorie malnutrition; J96.20 Acute and chronic respiratory failure, unspecified whether with hypoxia or hypercapnia; I50.23 Acute on chronic systolic (congestive) heart failure; J44.1 Chronic obstructive pulmonary disease with (acute) exacerbation; D68.9 Coagulation defect, unspecified; I47.2 Ventricular tachycardia; E87.6 Hypokalemia; I50.82 Biventricular heart failure; N18.9 Chronic kidney disease, unspecified; E66.9 Obesity, unspecified; I70.0 Atherosclerosis of aorta; D64.9 Anemia, unspecified; I73.9 Peripheral vascular disease, unspecified; Z20.822 Contact with and (suspected) exposure to COVID-19; G62.9 Polyneuropathy, unspecified; E78.5 Hyperlipidemia, unspecified; E78.00 Pure hypercholesterolemia, unspecified; I25.10 Atherosclerotic heart disease of native coronary artery without angina pectoris; I25.2 Old myocardial infarction; I34.0 Nonrheumatic mitral (valve) insufficiency; Z82.49 Family history of ischemic heart disease and other diseases of the circulatory system; Z86.718 Personal history of other venous thrombosis and embolism; Z95.0 Presence of cardiac pacemaker; Z88.5 Allergy status to narcotic agent; Z68.25 Body mass index [BMI] 25.0-25.9, adult; Z95.1 Presence of aortocoronary bypass graft; Z98.61 Coronary angioplasty status
CPT/HCPCS: 36415; 71046; 74176; 80053; 82040; 82565; 83690; 83880; 84484; 85025; 85610; 85730; 87426; 96372; 96374; G0378; J1885; J2405

== ENCOUNTER → 2021-12-08 | Outpatient (CLI) | payer MEDICARE, MEDICAID ==
[~2021-12-08] MED LIST changes: +ISO60SRT PO; +SPIR25TA8 PO
[2021-12-08 10:32] LABS: Urine Amorphous Crystal FEW /hpf (None Seen); Urine Bacteria FEW /hpf (None Seen); Urine Blood Negative /uL (Negative); Urine Specific Gravity 1.011 (1.001-1.035); Urine WBC 2 /hpf (0 - 5)
[2021-12-08 10:35] LABS: Chloride 110 mmol/L (98-107); Sodium 139 mmol/L (136-145)
[2021-12-08 10:45] LABS: Alanine Aminotransferase 28 U/L (13-56); Albumin 3.1 g/dL (3.4-5.0); Alkaline Phosphatase 104 U/L (45-117); Anion Gap 7 (5-15); Aspartate Aminotransferase 38 U/L (15-37); BUN/Creatinine Ratio 15.6; Bilirubin, Total 0.5 mg/dL (0.2-1.0); Blood Urea Nitrogen 33 mg/dL (7-18); Calcium 8.6 mg/dL (8.5-10.1); Carbon Dioxide 22 mmol/L (21-32); Cholesterol 228 mg/dL (< 200); GFR African American 30 mL/min; GFR Non-African American 25 mL/min; Glucose 113 mg/dL (74-106); HDL Cholesterol 28 mg/dL (40-59); Total Protein 7.8 g/dL (6.4-8.2); Triglycerides 406 mg/dL (< 150)
[2021-12-08 10:52] LABS: INR 1.71 (0.9-1.15); Partial Thromboplastin Time 32.5 sec (23.6-33.0)
[2021-12-08 11:05] LABS: Basophils # (auto) 0.1 10 ^3/uL (0-0.2); Basophils % (auto) 0.6 % (0.0-2.0); Eosinophils # (auto) 0.1 10 ^3/uL (0-0.8); Eosinophils % (auto) 1.1 % (0.0-7.0); Hematocrit 36.9 % (36.0-46.0); Hemoglobin 12.4 g/dL (12.2-16.2); Lymphocytes # (auto) 1.6 10 ^3/uL (0.4-5.4); Lymphocytes % (auto) 15.7 % (10.0-50.0); Mean Corpuscular Hemoglobin 31.1 pg (28.0-32.0); Mean Corpuscular Hgb Conc. 33.5 g/dL (32.0-36.0); Monocytes % (auto) 9.7 % (0.0-12.0); Neutrophils # (auto) 7.2 10 ^3/uL (1.6-8.6); Neutrophils % (auto) 72.9 % (37.0-80.0); Nucleated Red Blood Cells % 0.2 %; Red Blood Cells 3.97 10^6/uL (4.0-5.20); Red Cell Distribution Width 14.1 % (11.8-14.3); White Blood Cell 9.9 10^3/uL (4.4-10.8)
== END | disposition home or self-care (01) ==
LOC: LAB 08:43
PROVIDERS: ATTEND Internal Medicine
DX: E11.22 Type 2 diabetes mellitus with diabetic chronic kidney disease (principal); N18.9 Chronic kidney disease, unspecified; R91.8 Other nonspecific abnormal finding of lung field
CPT/HCPCS: 36415; 80053; 80061; 81001; 82043; 83036; 85025; 85610; 85730

== ENCOUNTER → 2021-12-09 | Outpatient (CLI) | payer MEDICARE, MEDICAID ==
[~2021-12-09] MED LIST changes: +LIDOCAINE 2%HCL (LOCAL ANESTH.) INJ 10ml MDV ONE; +MIDAZOLAM HCL 2MG/2ML 2ml VIAL (1mg/ml) IV ONE; +fentaNYL CITRATE 100 MCG/2 ML VL IV ONE
[2021-12-09 11:47] VITALS: BP 125/82
== END | disposition home or self-care (01) ==
LOC: XYW 09:34
PROVIDERS: ATTEND Internal Medicine Pulmonary Disease
DX: R91.8 Other nonspecific abnormal finding of lung field (principal); J84.10 Pulmonary fibrosis, unspecified; I50.9 Heart failure, unspecified; Z87.891 Personal history of nicotine dependence; Z95.5 Presence of coronary angioplasty implant and graft; Z82.49 Family history of ischemic heart disease and other diseases of the circulatory system; Z81.8 Family history of other mental and behavioral disorders
CPT/HCPCS: 32408; 71045; 71250; 77012; 88305; J2001; 10005

== ENCOUNTER → 2021-12-24 | Outpatient (CLI) | payer OTHER, MEDICAID ==
[~2021-12-24] MED LIST changes: -LIDOCAINE 2%HCL (LOCAL ANESTH.) INJ 10ml MDV ONE; -MIDAZOLAM HCL 2MG/2ML 2ml VIAL (1mg/ml) IV ONE; -fentaNYL CITRATE 100 MCG/2 ML VL IV ONE
[2021-12-24 16:43] LABS: BUN/Creatinine Ratio 9.2; Calcium 8.7 mg/dL (8.5-10.1)
== END | disposition home or self-care (01) ==
LOC: LAB 14:10
PROVIDERS: ATTEND Internal Medicine
DX: E11.9 Type 2 diabetes mellitus without complications (principal); J44.9 Chronic obstructive pulmonary disease, unspecified; R91.8 Other nonspecific abnormal finding of lung field
CPT/HCPCS: 36415; 80048; 86635

== ENCOUNTER → 2022-08-04 | Outpatient (CLI) | payer OTHER, MEDICAID ==
[2022-08-04 09:45] LABS: Basophils # (auto) 0.1 10 ^3/uL (0-0.2); Basophils % (auto) 0.8 % (0.0-2.0); Eosinophils # (auto) 0.1 10 ^3/uL (0-0.8); Lymphocytes # (auto) 0.8 10 ^3/uL (0.4-5.4); Lymphocytes % (auto) 10.4 % (10.0-50.0); Mean Corpuscular Hemoglobin 28.7 pg (28.0-32.0); Mean Corpuscular Hgb Conc. 33.4 g/dL (32.0-36.0); Mean Corpuscular Volume 85.9 fL (80.0-100.0); Monocytes # (auto) 0.5 10 ^3/uL (0-1.3); Monocytes % (auto) 6.7 % (0.0-12.0); Neutrophils # (auto) 6.1 10 ^3/uL (1.6-8.6); Neutrophils % (auto) 81.1 % (37.0-80.0); Red Blood Cells 3.49 10^6/uL (4.0-5.20); Red Cell Distribution Width 18.7 % (11.8-14.3); White Blood Cell 7.5 10^3/uL (4.4-10.8)
[2022-08-04 10:45] LABS: % Iron Saturation 6.2 % (15-50)
[2022-08-04 10:54] LABS: Albumin 2.9 g/dL (3.4-5.0); Bilirubin, Total 0.9 mg/dL (0.2-1.0); Calcium 9.3 mg/dL (8.5-10.1); Potassium 3.9 mmol/L (3.5-5.1); Total Protein 7.5 g/dL (6.4-8.2)
== END | disposition home or self-care (01) ==
LOC: LAB 09:17
PROVIDERS: ATTEND Internal Medicine
DX: E78.5 Hyperlipidemia, unspecified (principal); D72.819 Decreased white blood cell count, unspecified; J44.9 Chronic obstructive pulmonary disease, unspecified; R63.4 Abnormal weight loss; E11.9 Type 2 diabetes mellitus without complications; D64.9 Anemia, unspecified
CPT/HCPCS: 36415; 80053; 80061; 83036; 83540; 83550; 84443; 85025